=== PATIENT | female | born 1950 | race Caucasian/White ===

== ENCOUNTER → 2021-02-08 | Outpatient (CLI) | payer MEDICARE | LOC: EXRD 10:30 → KOH-I 10:30 | DX: M81.0 Age-related osteoporosis without current pathological fracture (principal); M51.14 Intervertebral disc disorders with radiculopathy, thoracic region; M41.9 Scoliosis, unspecified | CPT/HCPCS: 72146; 77080 ==

== ENCOUNTER → 2021-04-07 | Outpatient (CLI) | payer OTHER ==
[2021-04-08 10:14] LABS: CALCIUM, SERUM 9.6 mg/dL (8.7-10.3); CREATININE, SERUM 0.71 mg/dL (0.57-1.00); POTASSIUM, SERUM 3.8 mmol/L (3.5-5.2)
== END ==
LOC: LAB 11:38
PROVIDERS: Orthopaedic Surgery
DX: Z01.818 Encounter for other preprocedural examination (principal); G56.02 Carpal tunnel syndrome, left upper limb
CPT/HCPCS: 80048; 93005

== ENCOUNTER → 2021-04-13 | Day surgery (SDC) | payer OTHER ==
[~2021-04-13] MED LIST: COZAAR 50MG TAB50 MG PO; EUTHYROX75 MCG PO; GABAPENTIN300 MG PO; HYDROCHLOROTH12.5 MG PO; HYDROCHLOROTHIA25 MG PO; IBANDRONATE SO150 MG PO; NAPROXEN500 MG PO; ROBAXIN 750 MG750 MG PO; VITAMIN D21250 MCG PO
[2021-04-13 07:25] LABS: BUN/CREATININE RATIO 40 (0-10)
== END | disposition home or self-care (01) ==
LOC: OR 04:53
PROVIDERS: Orthopaedic Surgery
DX: G56.02 Carpal tunnel syndrome, left upper limb (principal); I10 Essential (primary) hypertension; E78.5 Hyperlipidemia, unspecified; R00.0 Tachycardia, unspecified; E05.90 Thyrotoxicosis, unspecified without thyrotoxic crisis or storm; J45.909 Unspecified asthma, uncomplicated; Z88.8 Allergy status to other drugs, medicaments and biological substances; Z20.822 Contact with and (suspected) exposure to COVID-19
CPT/HCPCS: 80048; 93005; J0690; J1100; J1885; J2001; J2405; J2704; J7120; U0002